=== PATIENT | female | born 1950 | race Caucasian/White ===

== ENCOUNTER → 2017-09-24 | Outpatient (CLI) | payer BC ==
[~2017-09-24] MED LIST: ASP81 PO; BAC PO; FAM20 PO; IBU600 PO; IBU800 PO; LOR10 PO; LOR5/325 PO; LOVA40TA89 PO; NIA100 PO; PHENA200 PO
--- NOTE | 2017-09-25 09:35 | RADIOLOGY IMAGING REPORT ---
FACILITY: [facility] [place] PATIENT NAME: LUIS CONLEY : [id number] MR: [id number] V: [id number] EXAM DATE: [id number] ORDERING PHYSICIAN: KATHRYN MORENO TECHNOLOGIST: Eleanor Yen PROCEDURE:BILATERAL DIGITAL SCREENING MAMMOGRAM WITH CAD ASSISTED INTERPRETATION & 3D TOMOSYNTHESIS COMPARISON:Prior mammograms 09/09/16, 09/12/15, 09/13/14, 10/25/13, 10/18/13, 09/17/12. INDICATIONS:SCREENING FINDINGS: Moderately heterogeneous fibroglandular tissue is seen throughout the breasts. The parenchymal pattern has remained stable allowing for difference in mammographic technique & patient positioning. There is no evidence of malignant appearing mass, malignant appearing calcifications or other secondary sign of malignancy in either breast. DIAGNOSTIC CATEGORY 1--NEGATIVE. RECOMMENDATIONS: ROUTINE MAMMOGRAM AND CLINICAL EVALUATION. IMPRESSION: BIRADS 1: Negative. No significant abnormality is seen. Dictated by: Svitlana Rebolledo M.D. on 09/24/2017 at 15:27 Transcribed by: MINERVA on 09/24/2017 at 15:37 Approved by: Svitlana Rebolledo M.D. on 09/25/2017 at 9:35 [facility]
== END ==
LOC: MAMO 01:01
PROVIDERS: ATTEND Obstetrics & Gynecology
DX: Z12.31 Encounter for screening mammogram for malignant neoplasm of breast (principal)
CPT/HCPCS: 77063; 77067

== ENCOUNTER → 2018-10-19 | Outpatient (CLI) | payer MEDICARE ==
--- NOTE | 2018-10-20 15:56 | RADIOLOGY IMAGING REPORT ---
FACILITY: [facility] PATIENT NAME: LUIS CONLEY : [id number] MR: [id number] V: [id number] EXAM DATE: [id number] ORDERING PHYSICIAN: KATHRYN MORENO TECHNOLOGIST: Maggy Hardwick PROCEDURE: BILATERAL DIGITAL SCREENING MAMMOGRAM WITH CAD ASSISTED INTERPRETATION & 3D TOMOSYNTHESIS. REASON FOR STUDY: Screening. COMPARISON: 09/24/2017 & 09/09/2016. VIEWS OBTAINED: 2D & 3D full field CC & MLO projections. BREAST DENSITY: Breast tissue demonstrates scattered fibroglandular tissue elements. MAMMOGRAM FINDINGS: There is no suspicious mass, calcification, or architectural distortion. IMPRESSION: BIRADS 1: Negative. DIAGNOSTIC CATEGORY 1--NEGATIVE. RECOMMENDATIONS: ROUTINE MAMMOGRAM AND CLINICAL EVALUATION IN 1YR. Dictated by: Holland Murrieta M.D. on 10/20/2018 at 12:31 Transcribed by: MINERVA on 10/20/2018 at 14:19 Approved by: Holland Murrieta M.D. on 10/20/2018 at 15:51 [facility]
== END ==
LOC: MAMO 02:10
PROVIDERS: ATTEND Obstetrics & Gynecology
DX: Z12.31 Encounter for screening mammogram for malignant neoplasm of breast (principal); Z80.3 Family history of malignant neoplasm of breast
CPT/HCPCS: 77063; 77067